=== PATIENT | male | born 1950 | race African-American/Black ===

== ENCOUNTER 2017-03-19 00:43 | Emergency (ER) | payer MEDICARE ==
[~2017-03-19] VITALS: Ht 185.4 cm; Wt 105.6 kg
[2017-03-19 02:36] LABS: MEAN CORPUSCULAR HEMOGLOBIN 26.7 pg (27.5-34.5); MEAN CORPUSCULAR HGB CONC 32.1 g/dL (33.2-36.2); MEAN CORPUSCULAR VOLUME 83.2 fL (81-97); MEAN PLATELET VOLUME 8.1 fL (7.4-10.4); PLATELET COUNT 250 x10^3/uL (130-400); RED BLOOD COUNT 4.64 x10^6/uL (4.38-5.82); RED CELL DISTRIBUTION WIDTH 13.7 % (9.4-14.8)
[2017-03-19 02:48] LABS: ALANINE AMINOTRANSFERASE 45 U/L (12-78); ALBUMIN 2.8 g/dL (3.4-5.0); ANION GAP 7 mmol/L (5-15); CALCIUM 7.6 mg/dL (8.5-10.1); CHLORIDE 107 mmol/L (98-107); CREATININE 0.86 mg/dL (0.7-1.3)
[2017-03-19 02:53] LABS: ALKALINE PHOSPHATASE 85 U/L (45-117); BILIRUBIN,TOTAL 0.4 mg/dL (0.2-1.0)
[2017-03-19 03:00] LABS: MD YES
[2017-03-19 03:05] LABS: <RBC MORPHOLOGY> NORMAL; EOS#(MANUAL) 0.32 x10^3/uL (0.0-0.4); EOS% (MANUAL) 7 % (1-7); LYMPH#(MANUAL) 2.66 x10^3/uL (1-3.4); LYMPHS% (MANUAL) 59 % (22-44); MONOS#(MANUAL) 0.23 x10^3/uL (0.3-2.7); MONOS% (MANUAL) 5 % (2-9); SEG#(MANUAL) 1.31 x10^3/uL (1.8-6.8); SEGS% (MANUAL) 29 % (42-75)
[2017-03-19 03:06] LABS: <PLATELET ESTIMATE> ADEQUATE; <PLT MORPHOLOGY> NORMAL PLT MORPH
[2017-03-19 03:29] VITALS: BP 127/77
== END 2017-03-19 03:26 | disposition home or self-care (01) ==
LOC: ED 01:20
DX: R60.0 Localized edema (principal); E88.09 Other disorders of plasma-protein metabolism, not elsewhere classified; I87.2 Venous insufficiency (chronic) (peripheral)
CPT/HCPCS: 36415; 80053; 83880; 85025; 93970; 99285

== ENCOUNTER 2017-11-14 02:02 | Emergency (ER) | payer MEDICARE ==
[~2017-11-14] VITALS: Ht 185.4 cm; Wt 100.0 kg
[2017-11-14 02:06] VITALS: BP 141/86
[2017-11-14] MEDS ORDERED: HYDROcodone/APAP 5/325 TABLET PO ONE (02:30)
[2017-11-14] MEDS ORDERED: HYDROcodone/APAP 5/325 TABLET ONE (02:32)
== END 2017-11-14 03:16 | disposition home or self-care (01) ==
LOC: ED 02:53
DX: K04.7 Periapical abscess without sinus (principal)
CPT/HCPCS: 99283

== ENCOUNTER 2018-03-24 00:24 | Emergency (ER) | payer MEDICARE ==
[~2018-03-24] VITALS: Ht 180.3 cm; Wt 80.0 kg
[2018-03-24 00:33] VITALS: BP 148/70
--- NOTE | 2018-03-24 00:39 | NUR ---
DILSHAD MARROQUIN AFTER BEING FOUND AT A SAFEWAY ON A BENCH INSIDE, AT CLOSING, BY THE [facility]. PT IS ALERT AND ORIENTED, STATES HE WAS THERE TRYING TO "GET A BREAK FROM THE COLD". PT ADMITS TO DRUG USE TODAY HOWEVER DOES NOT SPECIFY WHICH DRUG. HE IS C/O BACK PAIN. DENIES ANY FALLS/TRAUMA, STATES IT'S RELATED TO HIS SCIATICA.
[2018-03-24 01:25] LABS: MEAN CORPUSCULAR HEMOGLOBIN 26.7 pg (27.5-34.5); MEAN CORPUSCULAR HGB CONC 32.3 g/dL (33.2-36.2); MEAN CORPUSCULAR VOLUME 82.7 fL (81-97); MEAN PLATELET VOLUME 8.6 fL (7.4-10.4); PLATELET COUNT 282 x10^3/uL (130-400); RED BLOOD COUNT 4.72 x10^6/uL (4.38-5.82); RED CELL DISTRIBUTION WIDTH 13.1 % (9.4-14.8)
[2018-03-24 01:29] LABS: MD YES
[2018-03-24 01:37] LABS: ALANINE AMINOTRANSFERASE 36 U/L (12-78); ALBUMIN 3.5 g/dL (3.4-5.0); ANION GAP 4 mmol/L (5-15); CALCIUM 8.3 mg/dL (8.5-10.1); CHLORIDE 109 mmol/L (98-107)
[2018-03-24 01:42] LABS: ALKALINE PHOSPHATASE 73 U/L (45-117); BASOS#(MANUAL) 0.04 x10^3/uL (0-0.1); BASOS% (MANUAL) 1 % (0-1); BILIRUBIN,TOTAL 0.5 mg/dL (0.2-1.0); CREATININE 0.96 mg/dL (0.7-1.3); EOS#(MANUAL) 0.27 x10^3/uL (0.0-0.4); EOS% (MANUAL) 7 % (1-7); LYMPH#(MANUAL) 2.43 x10^3/uL (1-3.4); LYMPHS% (MANUAL) 64 % (22-44); MONOS% (MANUAL) 8 % (2-9); SEGS% (MANUAL) 20 % (42-75); TOTAL PROTEIN 7.7 g/dL (6.4-8.2); TROPONIN I < 0.015 ng/mL (0.000-0.045)
[2018-03-24 01:43] LABS: <PLATELET ESTIMATE> ADEQUATE; <PLT MORPHOLOGY> NORMAL PLT MORPH; <RBC MORPHOLOGY> NORMAL; SEG#(MANUAL) 0.76 x10^3/uL (1.8-6.8)
--- NOTE | 2018-03-24 02:00 | NUR ---
PT SLEEPING. AROUSES TO VERBAL STIMULI. VITALS STABLE. AWAITING PT TO SOBER UP FOR SAFE DISCHARGE
--- NOTE | 2018-03-24 03:02 | NUR ---
PT SLEEPING. RESPIRATIONS EVEN AND UNLABORED. WILL CONTINUE TO MONITOR.
--- NOTE | 2018-03-24 04:10 | NUR ---
PT NOT WANTING TO LEAVE, PT STATES "IT'S COLD OUTSIDE AND I'M HOMELESS". PT PROVIDED WITH A CAB VOUCHER TO THE [facility]. PT CONTINUES TO NOT MAKE ANY PROGRESS GETTING DRESSED TO BE DISCHARGED. SECURITY CALLED TO ASSIST PT IN LEAVING FACILITY. [employer] CALLED FOR CAB RIDE TO [facility].
== END 2018-03-24 04:14 | disposition home or self-care (01) ==
LOC: ED 01:24
DX: R55 Syncope and collapse (principal); Z72.9 Problem related to lifestyle, unspecified
CPT/HCPCS: 36415; 80053; 80307; 84484; 85025; 93005; 99284

== ENCOUNTER 2018-04-28 01:23 | Emergency (ER) | payer MEDICARE ==
[~2018-04-28] VITALS: Ht 185.4 cm; Wt 100.0 kg
[2018-04-28 02:29] VITALS: BP 131/82
--- NOTE | 2018-04-28 02:31 | NUR ---
PT RESTING ON GURNEY WITH EYES CLOSED, OPENS EYES TO VERBAL RESPONSE, MONITORS IN PLACE, PT ASSISTED INTO HOSPITAL GOWN, SIDERAILS UP X2, CALL LIGHT WITHIN REACH. AWAITING ORDERS
--- NOTE | 2018-04-28 03:12 | NUR ---
pt incontinent of urine on room floor, assisted pt with cleaning self, and changing into clean gown, floor cleaned. pt now resting on gurney, monitors in place, siderails up x2, call light within reach.
--- NOTE | 2018-04-28 04:43 | NUR ---
NOTED PT INCONTINENT OF URINE ON ED ROOM FLOOR REGARDLESS OF URINAL AND CALL LIGHT WITHIN PT'S REACH. NOTIFIED PT THAT HE WAS D/C'D AND NEEDS TO GET DRESSED, PT REQUESTING THAT I CLOSE DOOR AND PULLED BLANKET OVER HIS HEAD. SECURITY CALLED FOR ASSISTANCE WITH ESCORTING PT OUT TO LOBBY
== END 2018-04-28 05:13 | disposition home or self-care (01) ==
LOC: ED 02:56
DX: G89.29 Other chronic pain (principal); M54.5 Low back pain; M25.562 Pain in left knee; Z72.9 Problem related to lifestyle, unspecified
CPT/HCPCS: 99281; 99283